=== PATIENT | male | born 1995 | race Caucasian/White ===

== ENCOUNTER 2019-07-25 11:48 | Emergency (ER) | payer MEDICAID, OTHER ==
[~2019-07-25] VITALS: Ht 175.3 cm; Wt 158.8 kg
[2019-07-25 11:50] VITALS: BP_SYST 155
--- NOTE | 2019-07-25 11:55 | NUR ---
Patient to ER bed 1 to gown for evaluation. Side rails up. Report given to Vinny NICE.
--- NOTE | 2019-07-25 12:10 | NUR ---
ER at bedside examining patient.
--- NOTE | 2019-07-25 12:10 | NUR ---
PT CAME TO ER FOR RAPID HEART RATE, PRESSURE IN CHEST. NO PAIN AT THIS TIME.
[2019-07-25] MEDS ORDERED: LORazepam 1 MG TABLET PO ONE (12:15)
[2019-07-25 12:53] LABS: BASOPHILS # (AUTO) 0.2 K/uL (0.0-0.2); BASOPHILS % (AUTO) 1.3 % (0.0-2.0); EOSINOPHILS # (AUTO) 0.3 K/uL (0.0-0.4); EOSINOPHILS % (AUTO) 2.1 % (0.0-4.0); HEMATOCRIT 46.3 % (36-54); HEMOGLOBIN 15.5 g/dL (14.0-18.0); LYMPHOCYTES % (AUTO) 27.2 % (20.5-51.5); MEAN CORPUSCULAR HEMOGLOBIN 28 pg (27-31); MEAN CORPUSCULAR HGB CONC 34 % (32-36); MEAN CORPUSCULAR VOLUME 84 fL (79.0-98.0); MONOCYTES # (AUTO) 1.7 K/uL (0.0-1.0); MONOCYTES % (AUTO) 11.5 % (1.7-9.3); NEUTROPHILS # (AUTO) 8.6 K/uL (1.8-7.7); NEUTROPHILS % (AUTO) 57.9 % (40.0-70.0); PLATELET COUNT (AUTO) 324 K/uL (130-430); RED BLOOD CELL COUNT(AUTO) 5.49 MIL/uL (4.2-6.2); RED CELL DISTRIBUTION WIDTH 13.7 % (9.0-15.0); WHITE BLOOD COUNT (AUTO) 14.8 K/uL (4.8-10.8)
[2019-07-25 13:05] LABS: CREATININE 0.77 mg/dL (0.55-1.30); POTASSIUM 3.7 mmol/L (3.5-5.1)
[2019-07-25 13:11] LABS: ALBUMIN 3.6 g/dL (3.4-4.8); TOTAL BILIRUBIN 0.3 mg/dL (0.0-1.0)
--- NOTE | 2019-07-25 13:45 | NUR ---
PT RESTING IN [facility] AT THIS TIME, GOOD RESPONSE TO MEDICATION
[2019-07-25 13:54] LABS: FREE T4 (FREE THYROXINE) 1.3 ng/dl (0.8-1.5); THYROID STIMULATING HORMONE 2.98 uIu/mL (0.36-3.74)
[2019-07-25 14:20] VITALS: BP_SYST 155
--- NOTE | 2019-07-25 14:20 | NUR ---
Patient given written and verbal discharge instructions and verbalizes understanding. ER MD discussed with patient the results and treatment provided. Patient in stable condition. ID arm band removed. Patient educated on pain management and to follow up with PMD. Pain Scale 0/10. Opportunity for questions provided and answered. Medication side effect fact sheet provided.
== END 2019-07-25 14:20 | disposition home or self-care (01) ==
LOC: SED 11:48
DX: R00.2 Palpitations (principal); R07.9 Chest pain, unspecified; K21.9 Gastro-esophageal reflux disease without esophagitis
CPT/HCPCS: 36415; 71045; 80053; 82550-TC; 84439; 84443-TC; 84484; 85025; 93005; 99285